=== PATIENT | female | born 1945 | race Caucasian/White ===

== ENCOUNTER → 2023-11-30 09:34 | Outpatient (REF) | payer MEDICARE, SELFPAY | LOC: HWRAD 09:34 | PROVIDERS: ATTENDING PHYSICIAN Obstetrics & Gynecology Gynecology; FAMILY PHYSICIAN Student in an Organized Health Care Education/Training Program | DX: Z78.0 Asymptomatic menopausal state (principal); Z12.31 Encounter for screening mammogram for malignant neoplasm of breast | CPT/HCPCS: 77063; 77067; 77080 ==

== ENCOUNTER 2024-12-03 06:15 | Day surgery (SDC) | payer MEDICARE, SELFPAY | END 2024-12-03 10:16 | disposition home or self-care (01) | LOC: GI 06:15 | PROVIDERS: ATTENDING PHYSICIAN Surgery; FAMILY PHYSICIAN Student in an Organized Health Care Education/Training Program | DX: D12.2 Benign neoplasm of ascending colon (principal); K57.30 Diverticulosis of large intestine without perforation or abscess without bleeding; K64.4 Residual hemorrhoidal skin tags; R19.5 Other fecal abnormalities; K56.2 Volvulus | CPT/HCPCS: 45385; 88305 ==

== ENCOUNTER → 2024-12-10 14:40 | Outpatient (REF) | payer MEDICARE, SELFPAY | LOC: HWWDC 14:40 | PROVIDERS: ATTENDING PHYSICIAN Obstetrics & Gynecology Gynecology; FAMILY PHYSICIAN Student in an Organized Health Care Education/Training Program | DX: Z12.31 Encounter for screening mammogram for malignant neoplasm of breast (principal) | CPT/HCPCS: 77063; 77067 ==

== ENCOUNTER 2024-12-31 13:04 | Emergency (ER) | payer MEDICARE, SELFPAY ==
[2024-12-31 13:13] VITALS: BP 121/72
--- NOTE | 2024-12-31 14:44 | ED.MUSCINJ ---
HPI-Injury
General
Chief Complaint: Musculo-Skeletal Complaint
Source: patient
Exam Limitations: none
Time Seen by Provider: 12/31/24 14:21
History of Present Illness-Injury
Initial Injury comments:
79 year old female with left shoulder pain worsening since last night. She thinks she over did it with house work over the past several days. The pain is over the anterior lateral shoulder and is made worse with active motion. No prior injury.
No chest pain or shortness of breath. No paresthesias. No other complaints at this time
Phy Exam
Physical Exam
Physical Exam:
General: Well-appearing female no acute respiratory distress
HEENT: Normocephalic atraumatic
Musculoskeletal exam: Left shoulder tender anterior laterally no deformity decreased passive and active range of motion. Strength is intact upon testing.
Skin is warm no rash no erythema
Injury Course
Orders/Labs/Results
Orders:
Orders
12/31/24 13:15
Shoulder, Left 2 View CR [CR Shoulder - Left Min 2 View*] Urgent
Comment:
Reason For Exam: pain
12/31/24 14:44
Sling Left-Treatment ONCE
MDM/Problems Addressed
Differential Diagnosis Includes:
Left shoulder pain after overuse. No trauma. X-rays were obtained through triage there is no fracture or dislocation. Suspect underlying strain versus bursitis. Recommended sling and anti-inflammatories. Will follow-up with orthopedics
*Pulse Oximetry
SaO2: 100
Patient hypoxic: no
*Critical Care Note
Total Time (30-74mins, 75-104mins- exclusive of procedures): Not Applicable
ED Attending Note
-
Portions of this chart may have been created with voice recognition software.� Occasional wrong word or��sound alike� substitutions may have occurred due to the inherent limitations of voice recognition software.
Discharge Plan
Departure
Patient Disposition: Home (Routine Discharge)
Date of Disposition: 12/31/24
Time of Disposition: 14:48
Patient with high blood pressure during this ER visit?: No
Discharge Problem:
Left shoulder strain
Instructions: Muscle and Bone Pain (DC)
Prescriptions:
No Action
lisinopril 20 MG tablet
20 mg PO DAILY
simvastatin 10 MG tablet
10 mg PO QPM
bimatoprost [Lumigan] 1 DROP drops
1 drp BOTH EYES HS
Doxycycline
1 tab PO .EVERY OTHER DAY
Patient Comments:
takes for rosacea
Referrals:
Hal De Jesus MD [Active, Orthopedics]
Activity Restrictions/Additional Instructions:
Use sling for support. Continue with Aleve or Tylenol for pain. Follow-up with orthopedics for further evaluation.
Interventions
Interventions:
*Risk Screen - Suicide Last Done: 12/31/24 13:13
*General Assessment Last Done: 12/31/24 13:13
*Neglect/Abuse Screening Last Done: 12/31/24 13:13
*ED COVID-19 Vaccine History Last Done: 12/31/24 13:13
Discharge Date and Time
Print Language: [id number]
== END 2024-12-31 15:00 | disposition home or self-care (01) ==
LOC: EMR 13:04
PROVIDERS: EMERGENCY PHYSICIAN Emergency Medicine; FAMILY PHYSICIAN Student in an Organized Health Care Education/Training Program
DX: S46.912A Strain of unspecified muscle, fascia and tendon at shoulder and upper arm level, left arm, initial encounter (principal); X58.XXXA Exposure to other specified factors, initial encounter
CPT/HCPCS: 99283; 73030